=== PATIENT | male | born 1950 | race African-American/Black ===

== ENCOUNTER 2018-11-09 18:13 | Inpatient (IN) | payer BC, MEDICARE ==
[~2018-11-09] VITALS: Ht 177.8 cm; Wt 90.3 kg
[2018-11-09] MEDS ORDERED: SODIUM CHLORIDE 0.9% 1,000 ML IV ONE (19:29)
[2018-11-09] MEDS ORDERED: SODIUM CHLORIDE 0.9% 1000ML BAG (SEPSIS BOLUS) IV ONE (20:15)
[2018-11-09] MEDS ORDERED: LEVOFLOXACIN 750MG PREMIX 150 ML IV ONE (20:15)
[2018-11-09 20:20] LABS: CHLORIDE 99 mEq/L (98-107)
[2018-11-09 20:22] LABS: BASOPHILS % 0.5 % (0.0-2.0); EOSINOPHILS % 0.7 % (0.0-5.0); HEMATOCRIT. 33.3 % (42.0-52.0); HEMOGLOBIN. 11.3 g/dL (14.0-18.0); LYMPHOCYTES % 11.2 % (20.0-50.0); MEAN CORPUSCULAR HEMOGLOBIN 30.2 pg (28.0-32.0); MEAN CORPUSCULAR VOLUME 88.7 fL (80.0-94.0); MONOCYTES % 13.4 % (2.0-8.0); NEUTROPHILS % 74.2 % (40.0-76.0); PLATELET 280 x1000/uL (130-400); RED BLOOD CELL COUNT 3.75 mill/uL (4.7-6.1); RED CELL DISTRIBUTION WIDTH 14.2 % (11.6-14.6)
[2018-11-09 20:25] LABS: PARTIAL THROMBOPLASTIN TIME 26.8 sec (23.4-31.0); PROTHROMBIN TIME 10.7 sec (9.6-11.0)
[2018-11-09 22:56] LABS: CLARITY URINE TURBID (CLEAR); COLOR URINE YELLOW (YELLOW); KETONES URINE TRACE (NEGATIVE); LEUKOCYTE ESTERASE URINE 3+ (NEGATIVE); NITRITE URINE NEGATIVE (NEGATIVE); OCCULT BLOOD URINE 1+ (NEGATIVE); PROTEIN URINE 2+ (NEGATIVE); SPECIFIC GRAVITY URINE 1.011 (1.005-1.030); UROBILINOGEN URINE 0.2 E.U./dL (0.2-1.0)
[2018-11-09] MEDS ORDERED: DOCUSATE SODIUM 100MG CAPSULE PO PRN (23:15)
[2018-11-09] MEDS ORDERED: HYDROCODONE/ACETAMINOPHEN 5/325MG TABLET PO PRN (23:15)
[2018-11-09] MEDS ORDERED: IPRATROPIUM/ALBUTEROL 0.5-3(2.5)MG/3ML NEB INH PRN (23:15)
[2018-11-09] MEDS ORDERED: ONDANSETRON HCL 4MG/2ML INJ IV PRN (23:15)
[2018-11-09] MEDS ORDERED: CLONIDINE 0.1MG TABLET PO PRN (23:15)
[2018-11-09] MEDS ORDERED: ACETAMINOPHEN 325MG TABLET PO PRN (23:15)
[2018-11-09 23:30] VITALS: BP 165/89
[2018-11-10] MEDS ORDERED: METF-416 PO (00:21)
[2018-11-10] MEDS ORDERED: PROP40TA7 PO (00:21)
[2018-11-10] MEDS ORDERED: ATOR-2 PO (00:22)
[2018-11-10] MEDS ORDERED: LISI40TA4 PO (00:22)
[2018-11-10] MEDS ORDERED: MIRA50TA PO (00:27)
[2018-11-10] MEDS ORDERED: ALOG25TA2 PO (00:27)
[2018-11-10] MEDS ORDERED: HYDR12.54 PO (00:27)
[2018-11-10] MEDS ORDERED: INSU100I28 SQ (00:27)
[2018-11-10] MEDS ORDERED: DEXTROSE 50% WATER 50ML SYRINGE IV PRN (00:30)
[2018-11-10] MEDS: NIFEDIPINE XL 30MG TAB PO SCH (00:49)
[2018-11-10 04:00] VITALS: BP 116/68
[2018-11-10 06:54] LABS: BASOPHILS % 0.3 % (0.0-2.0); EOSINOPHILS % 1.7 % (0.0-5.0); HEMATOCRIT. 28.8 % (42.0-52.0); HEMOGLOBIN. 9.7 g/dL (14.0-18.0); LYMPHOCYTES % 14.7 % (20.0-50.0); MEAN CORPUSCULAR HEMOGLOBIN 30.2 pg (28.0-32.0); MEAN CORPUSCULAR VOLUME 89.5 fL (80.0-94.0); MEAN PLATELET VOLUME 9.5 fl (7.4-10.4); MONOCYTES % 14.4 % (2.0-8.0); NEUTROPHILS % 68.9 % (40.0-76.0); PLATELET 260 x1000/uL (130-400); RED BLOOD CELL COUNT 3.21 mill/uL (4.7-6.1); RED CELL DISTRIBUTION WIDTH 14.5 % (11.6-14.6)
[2018-11-10 07:11] LABS: CREATINE KINASE MB FRACTION 4.6 ng/mL (0.5-3.6)
[2018-11-10] MEDS: BLOOD SUGAR DIAGNOSTIC STRIP TEST SCH ×4 (07:20→21:22)
[2018-11-10 07:48] LABS: *BENZODIAZEPINES SCREEN URINE NEGATIVE (NEGATIVE); *COCAINE SCREEN URINE NEGATIVE (NEGATIVE); METHADONE URINE SCREEN NEGATIVE (NEGATIVE)
[2018-11-10 07:49] LABS: *AMPHETAMINES SCREEN URINE NEGATIVE (NEGATIVE); *BARBITURATES SCREEN URINE NEGATIVE (NEGATIVE); CANNABINOID URINE SCREEN NEGATIVE (NEGATIVE); OPIATES URINE SCREEN NEGATIVE (NEGATIVE); PHENCYCLIDINE URINE SCREEN NEGATIVE (NEGATIVE)
[2018-11-10 08:00] VITALS: BP 112/64
[2018-11-10] MEDS ORDERED: PNEUMOCOCCAL 23-VAL P-SAC VAC 0.5 ML IM ONE (08:00)
[2018-11-10 08:39] VITALS: BP 112/64
[2018-11-10] MEDS: INSULIN LISPRO 100 UNITS/ML SUBCUT SCH ×4 (10:01→21:26)
[2018-11-10 12:00] VITALS: BP 94/54
[2018-11-10 15:26] LABS: CREATINE KINASE MB FRACTION 3.9 ng/mL (0.5-3.6); T4 FREE 1.08 ng/dL (0.76-1.46)
[2018-11-10] MEDS: SODIUM CHLORIDE 0.45% 1,000 ML IV SCH (15:29)
[2018-11-10] MEDS: CEFTRIAXONE 1 G PREMIX 50 ML IV SCH (15:30)
[2018-11-10] MEDS: AZITHROMYCIN 500 MG TABLET PO SCH (15:30)
[2018-11-10 16:43] VITALS: BP 120/66
[2018-11-10 20:00] VITALS: BP 127/67
[2018-11-10] MEDS: ATORVASTATIN CALCIUM 40MG TABLET PO SCH (21:09)
[2018-11-11] VITALS: BP 130/68
[2018-11-11 04:00] VITALS: BP 130/68
[2018-11-11 04:16] LABS: HIV SCREEN 4G Non Reactive (Non Reactive)
[2018-11-11 06:21] LABS: BASOPHILS % 0.3 % (0.0-2.0); EOSINOPHILS % 3.5 % (0.0-5.0); HEMATOCRIT. 27.1 % (42.0-52.0); HEMOGLOBIN. 9.4 g/dL (14.0-18.0); LYMPHOCYTES % 14.8 % (20.0-50.0); MEAN CORPUSCULAR HEMOGLOBIN 30.9 pg (28.0-32.0); MEAN CORPUSCULAR VOLUME 88.9 fL (80.0-94.0); MEAN PLATELET VOLUME 9.2 fl (7.4-10.4); MONOCYTES % 12.1 % (2.0-8.0); NEUTROPHILS % 69.3 % (40.0-76.0); PLATELET 235 x1000/uL (130-400); RED BLOOD CELL COUNT 3.05 mill/uL (4.7-6.1)
[2018-11-11 06:26] LABS: PHOSPHORUS 5.4 mg/dL (2.5-4.9)
[2018-11-11] MEDS: BLOOD SUGAR DIAGNOSTIC STRIP TEST SCH ×4 (06:30→21:36)
[2018-11-11] MEDS: SODIUM CHLORIDE 0.45% 1,000 ML IV SCH ×2 (07:32→13:40)
[2018-11-11] MEDS: INSULIN LISPRO 100 UNITS/ML SUBCUT SCH ×4 (07:50→21:42)
[2018-11-11 08:00] VITALS: BP 138/76
[2018-11-11] MEDS: AZITHROMYCIN 500 MG TABLET PO SCH (10:07)
[2018-11-11] MEDS: NIFEDIPINE XL 30MG TAB PO SCH (10:07)
[2018-11-11 12:00] VITALS: BP 113/83
[2018-11-11 16:00] VITALS: BP 110/58
[2018-11-11] MEDS: CEFTRIAXONE 1 G PREMIX 50 ML IV SCH (16:34)
[2018-11-11 20:00] VITALS: BP 121/66
[2018-11-11] MEDS: ATORVASTATIN CALCIUM 40MG TABLET PO SCH (21:31)
[2018-11-11] MEDS: INSULIN GLARGINE UD 100 UNITS/ML SYR SUBCUT SCH (21:41)
[2018-11-12] VITALS (17 sets, daily range): BP systolic 114–140; BP diastolic 61–80
[2018-11-12] MEDS: SODIUM CHLORIDE 0.45% 1,000 ML IV SCH ×2 (01:57→18:47)
[2018-11-12] MEDS: BLOOD SUGAR DIAGNOSTIC STRIP TEST SCH ×4 (06:34→20:55)
[2018-11-12 06:55] LABS: BASOPHILS % 0.3 % (0.0-2.0); EOSINOPHILS % 4.4 % (0.0-5.0); HEMATOCRIT. 29.2 % (42.0-52.0); HEMOGLOBIN. 10.1 g/dL (14.0-18.0); LYMPHOCYTES % 15.8 % (20.0-50.0); MEAN CORPUSCULAR HEMOGLOBIN 30.4 pg (28.0-32.0); MEAN CORPUSCULAR VOLUME 87.4 fL (80.0-94.0); MEAN PLATELET VOLUME 9.4 fl (7.4-10.4); MONOCYTES % 11.3 % (2.0-8.0); NEUTROPHILS % 68.2 % (40.0-76.0); PLATELET 265 x1000/uL (130-400); RED BLOOD CELL COUNT 3.34 mill/uL (4.7-6.1); RED CELL DISTRIBUTION WIDTH 14.5 % (11.6-14.6)
[2018-11-12] MEDS: INSULIN LISPRO 100 UNITS/ML SUBCUT SCH ×4 (07:44→21:26)
[2018-11-12 08:05] LABS: PHOSPHORUS 5.7 mg/dL (2.5-4.9)
[2018-11-12] MEDS: NIFEDIPINE XL 30MG TAB PO SCH (09:24)
[2018-11-12] MEDS: AZITHROMYCIN 500 MG TABLET PO SCH (09:24)
[2018-11-12] MEDS: INSULIN GLARGINE UD 100 UNITS/ML SYR SUBCUT SCH ×2 (10:00→21:27)
[2018-11-12 10:08] LABS: PARTIAL THROMBOPLASTIN TIME 28.3 sec (23.4-31.0); PROTHROMBIN TIME 10.2 sec (9.6-11.0)
[2018-11-12 12:25] LABS: HEPATITIS B SURFACE ANTIGEN NEGATIVE
[2018-11-12] MEDS ORDERED: FENTANYL CITRATE/PF 50MCG/ML 2ML VIAL ONE (13:25)
[2018-11-12] MEDS ORDERED: FENTANYL CITRATE/PF 50MCG/ML 2ML VIAL IV ONE (13:45)
[2018-11-12] MEDS: CEFTRIAXONE 1 G PREMIX 50 ML IV SCH (16:43)
[2018-11-12] MEDS: ATORVASTATIN CALCIUM 40MG TABLET PO SCH (20:55)
[2018-11-13] VITALS: BP 144/80
[2018-11-13 04:00] VITALS: BP 142/77
[2018-11-13] MEDS: BLOOD SUGAR DIAGNOSTIC STRIP TEST SCH ×5 (06:24→20:32)
[2018-11-13 07:14] LABS: BASOPHILS % 0.3 % (0.0-2.0); EOSINOPHILS % 3.7 % (0.0-5.0); HEMATOCRIT. 28.4 % (42.0-52.0); HEMOGLOBIN. 9.8 g/dL (14.0-18.0); LYMPHOCYTES % 12.6 % (20.0-50.0); MEAN CORPUSCULAR HEMOGLOBIN 29.9 pg (28.0-32.0); MEAN CORPUSCULAR VOLUME 86.9 fL (80.0-94.0); MEAN PLATELET VOLUME 9.2 fl (7.4-10.4); MONOCYTES % 9.8 % (2.0-8.0); NEUTROPHILS % 73.6 % (40.0-76.0); PLATELET 240 x1000/uL (130-400); RED BLOOD CELL COUNT 3.27 mill/uL (4.7-6.1); RED CELL DISTRIBUTION WIDTH 14.1 % (11.6-14.6)
[2018-11-13 07:36] LABS: PHOSPHORUS 4.6 mg/dL (2.5-4.9)
[2018-11-13 08:00] VITALS: BP 140/74
[2018-11-13] MEDS: AZITHROMYCIN 500 MG TABLET PO SCH (08:39)
[2018-11-13] MEDS: NIFEDIPINE XL 30MG TAB PO SCH (08:39)
[2018-11-13] MEDS: INSULIN LISPRO 100 UNITS/ML SUBCUT SCH ×5 (08:42→20:32)
[2018-11-13] MEDS: INSULIN GLARGINE UD 100 UNITS/ML SYR SUBCUT SCH ×2 (11:22→21:26)
[2018-11-13 12:00] VITALS: BP 124/70
[2018-11-13] MEDS: CEFTRIAXONE 1 G PREMIX 50 ML IV SCH (15:00)
[2018-11-13 20:00] VITALS: BP 146/74
[2018-11-13] MEDS: ATORVASTATIN CALCIUM 40MG TABLET PO SCH (21:26)
[2018-11-13] MEDS ORDERED: HEPARIN 5000 UNITS/ML VIAL IV SCH (22:30)
[2018-11-13] MEDS ORDERED: HEPARIN SODIUM 1,000 UNIT/1ML VIAL IV SCH (22:30)
[2018-11-14] VITALS: BP 155/67
[2018-11-14 04:00] VITALS: BP 157/80
[2018-11-14] MEDS: BLOOD SUGAR DIAGNOSTIC STRIP TEST SCH ×4 (06:48→21:30)
[2018-11-14 06:51] LABS: BASOPHILS % 0.5 % (0.0-2.0); EOSINOPHILS % 4.1 % (0.0-5.0); HEMATOCRIT. 28.9 % (42.0-52.0); HEMOGLOBIN. 9.9 g/dL (14.0-18.0); LYMPHOCYTES % 13.4 % (20.0-50.0); MEAN CORPUSCULAR HEMOGLOBIN 30.2 pg (28.0-32.0); MEAN CORPUSCULAR VOLUME 88.7 fL (80.0-94.0); MEAN PLATELET VOLUME 9.7 fl (7.4-10.4); PLATELET 213 x1000/uL (130-400); RED BLOOD CELL COUNT 3.26 mill/uL (4.7-6.1); RED CELL DISTRIBUTION WIDTH 13.7 % (11.6-14.6)
[2018-11-14 08:00] VITALS: BP 146/87
[2018-11-14] MEDS: INSULIN LISPRO 100 UNITS/ML SUBCUT SCH ×4 (08:10→23:35)
[2018-11-14] MEDS: AZITHROMYCIN 500 MG TABLET PO SCH (09:03)
[2018-11-14] MEDS: NIFEDIPINE XL 30MG TAB PO SCH (09:03)
[2018-11-14] MEDS: INSULIN GLARGINE UD 100 UNITS/ML SYR SUBCUT SCH ×2 (09:04→23:37)
[2018-11-14 12:00] VITALS: BP 138/79
[2018-11-14 12:44] LABS: HEPATITIS B SURFACE ANTIGEN NEGATIVE
[2018-11-14 13:13] LABS: HEPATITIS A AB IGM NEGATIVE (NEGATIVE)
[2018-11-14] MEDS: CEFTRIAXONE 1 G PREMIX 50 ML IV SCH (14:01)
[2018-11-14 16:00] VITALS: BP 127/69
[2018-11-14 20:00] VITALS: BP 157/82
[2018-11-14] MEDS: ATORVASTATIN CALCIUM 40MG TABLET PO SCH (23:11)
[2018-11-15] VITALS: BP 145/86
[2018-11-15 04:00] VITALS: BP 140/80
[2018-11-15 06:09] LABS: BASOPHILS % 0.4 % (0.0-2.0); EOSINOPHILS % 4.4 % (0.0-5.0); HEMATOCRIT. 29.7 % (42.0-52.0); HEMOGLOBIN. 10.1 g/dL (14.0-18.0); LYMPHOCYTES % 16.2 % (20.0-50.0); MEAN CORPUSCULAR HEMOGLOBIN 30.4 pg (28.0-32.0); MEAN CORPUSCULAR VOLUME 88.9 fL (80.0-94.0); MEAN PLATELET VOLUME 9.6 fl (7.4-10.4); MONOCYTES % 11.7 % (2.0-8.0); NEUTROPHILS % 67.3 % (40.0-76.0); PLATELET 239 x1000/uL (130-400); RED BLOOD CELL COUNT 3.34 mill/uL (4.7-6.1); RED CELL DISTRIBUTION WIDTH 13.8 % (11.6-14.6)
[2018-11-15] MEDS: BLOOD SUGAR DIAGNOSTIC STRIP TEST SCH ×4 (07:40→20:31)
[2018-11-15 08:00] VITALS: BP 158/87
[2018-11-15] MEDS: AZITHROMYCIN 500 MG TABLET PO SCH (08:33)
[2018-11-15] MEDS: NIFEDIPINE XL 30MG TAB PO SCH (08:34)
[2018-11-15] MEDS: INSULIN LISPRO 100 UNITS/ML SUBCUT SCH ×4 (08:36→20:48)
[2018-11-15] MEDS: INSULIN GLARGINE UD 100 UNITS/ML SYR SUBCUT SCH ×2 (11:17→21:27)
[2018-11-15 12:00] VITALS: BP 128/79
[2018-11-15] MEDS: CEFTRIAXONE 1 G PREMIX 50 ML IV SCH (15:39)
[2018-11-15 16:00] VITALS: BP 128/69
[2018-11-15 20:00] VITALS: BP 153/85
[2018-11-15] MEDS: ATORVASTATIN CALCIUM 40MG TABLET PO SCH (21:25)
[2018-11-16] VITALS: BP 141/77
[2018-11-16 04:00] VITALS: BP 134/78
[2018-11-16] MEDS: BLOOD SUGAR DIAGNOSTIC STRIP TEST SCH ×4 (05:50→21:12)
[2018-11-16 06:40] LABS: BASOPHILS % 0.3 % (0.0-2.0); EOSINOPHILS % 4.3 % (0.0-5.0); HEMATOCRIT. 30.2 % (42.0-52.0); HEMOGLOBIN. 10.1 g/dL (14.0-18.0); LYMPHOCYTES % 14.5 % (20.0-50.0); MEAN CORPUSCULAR HEMOGLOBIN 29.8 pg (28.0-32.0); MEAN CORPUSCULAR VOLUME 88.9 fL (80.0-94.0); MEAN PLATELET VOLUME 9.6 fl (7.4-10.4); MONOCYTES % 10.8 % (2.0-8.0); NEUTROPHILS % 70.1 % (40.0-76.0); PLATELET 231 x1000/uL (130-400)
[2018-11-16 08:00] VITALS: BP 137/72
[2018-11-16] MEDS: NIFEDIPINE XL 30MG TAB PO SCH (08:34)
[2018-11-16] MEDS: AZITHROMYCIN 500 MG TABLET PO SCH (08:34)
[2018-11-16] MEDS: INSULIN LISPRO 100 UNITS/ML SUBCUT SCH ×4 (08:37→21:00)
[2018-11-16] MEDS: INSULIN GLARGINE UD 100 UNITS/ML SYR SUBCUT SCH ×2 (10:27→21:18)
[2018-11-16 12:00] VITALS: BP 136/75
[2018-11-16] MEDS: CEFTRIAXONE 1 G PREMIX 50 ML IV SCH (14:45)
[2018-11-16 16:00] VITALS: BP 122/72
[2018-11-16 20:00] VITALS: BP 133/73
[2018-11-16] MEDS: ATORVASTATIN CALCIUM 40MG TABLET PO SCH (21:16)
[2018-11-17] VITALS: BP 144/78
[2018-11-17 04:00] VITALS: BP 138/85
[2018-11-17 06:09] LABS: BASOPHILS % 0.6 % (0.0-2.0); EOSINOPHILS % 4.8 % (0.0-5.0); HEMATOCRIT. 28.3 % (42.0-52.0); HEMOGLOBIN. 9.3 g/dL (14.0-18.0); MEAN CORPUSCULAR HEMOGLOBIN 29.8 pg (28.0-32.0); MEAN CORPUSCULAR VOLUME 90.6 fL (80.0-94.0); MEAN PLATELET VOLUME 9.6 fl (7.4-10.4); MONOCYTES % 11.8 % (2.0-8.0); NEUTROPHILS % 64.8 % (40.0-76.0); PLATELET 213 x1000/uL (130-400); RED BLOOD CELL COUNT 3.13 mill/uL (4.7-6.1); RED CELL DISTRIBUTION WIDTH 13.8 % (11.6-14.6)
[2018-11-17 08:00] VITALS: BP 145/85
[2018-11-17] MEDS: BLOOD SUGAR DIAGNOSTIC STRIP TEST SCH ×4 (08:06→21:00)
[2018-11-17] MEDS: INSULIN LISPRO 100 UNITS/ML SUBCUT SCH ×4 (08:07→21:11)
[2018-11-17] MEDS: NIFEDIPINE XL 30MG TAB PO SCH (09:04)
[2018-11-17] MEDS: AZITHROMYCIN 500 MG TABLET PO SCH (09:04)
[2018-11-17] MEDS: INSULIN GLARGINE UD 100 UNITS/ML SYR SUBCUT SCH ×2 (09:05→21:11)
[2018-11-17 12:00] VITALS: BP 133/77
[2018-11-17] MEDS: CEFTRIAXONE 1 G PREMIX 50 ML IV SCH (15:00)
[2018-11-17 16:00] VITALS: BP 121/62
[2018-11-17 20:00] VITALS: BP 132/77
[2018-11-17] MEDS: ATORVASTATIN CALCIUM 40MG TABLET PO SCH (21:10)
[2018-11-18] VITALS: BP 134/76
[2018-11-18 04:00] VITALS: BP 137/76
[2018-11-18] MEDS: BLOOD SUGAR DIAGNOSTIC STRIP TEST SCH ×4 (06:44→21:00)
[2018-11-18 07:02] LABS: BASOPHILS % 0.5 % (0.0-2.0); EOSINOPHILS % 4.9 % (0.0-5.0); HEMATOCRIT. 29.3 % (42.0-52.0); HEMOGLOBIN. 9.8 g/dL (14.0-18.0); LYMPHOCYTES % 13.9 % (20.0-50.0); MEAN CORPUSCULAR HEMOGLOBIN 30.1 pg (28.0-32.0); MEAN CORPUSCULAR VOLUME 90.2 fL (80.0-94.0); MEAN PLATELET VOLUME 9.5 fl (7.4-10.4); MONOCYTES % 11.5 % (2.0-8.0); NEUTROPHILS % 69.2 % (40.0-76.0); PLATELET 210 x1000/uL (130-400); RED BLOOD CELL COUNT 3.25 mill/uL (4.7-6.1); RED CELL DISTRIBUTION WIDTH 13.9 % (11.6-14.6)
[2018-11-18 08:00] VITALS: BP 131/74
[2018-11-18] MEDS: INSULIN LISPRO 100 UNITS/ML SUBCUT SCH ×4 (08:10→21:50)
[2018-11-18] MEDS: NIFEDIPINE XL 30MG TAB PO SCH (09:28)
[2018-11-18] MEDS: INSULIN GLARGINE UD 100 UNITS/ML SYR SUBCUT SCH ×2 (09:29→21:50)
[2018-11-18 12:00] VITALS: BP 128/79
[2018-11-18 16:00] VITALS: BP 146/65
[2018-11-18 20:00] VITALS: BP 130/77
[2018-11-18] MEDS: ATORVASTATIN CALCIUM 40MG TABLET PO SCH (21:49)
[2018-11-19] VITALS: BP 137/71
[2018-11-19 04:00] VITALS: BP 133/86
[2018-11-19 07:41] LABS: BASOPHILS % 0.6 % (0.0-2.0); EOSINOPHILS % 4.9 % (0.0-5.0); HEMATOCRIT. 24.2 % (42.0-52.0); HEMOGLOBIN. 8.1 g/dL (14.0-18.0); LYMPHOCYTES % 14.5 % (20.0-50.0); MEAN CORPUSCULAR HEMOGLOBIN 30.3 pg (28.0-32.0); MEAN CORPUSCULAR VOLUME 89.9 fL (80.0-94.0); MEAN PLATELET VOLUME 9.4 fl (7.4-10.4); MONOCYTES % 10.8 % (2.0-8.0); NEUTROPHILS % 69.2 % (40.0-76.0); PLATELET 204 x1000/uL (130-400); RED BLOOD CELL COUNT 2.69 mill/uL (4.7-6.1); RED CELL DISTRIBUTION WIDTH 13.8 % (11.6-14.6)
[2018-11-19] MEDS: BLOOD SUGAR DIAGNOSTIC STRIP TEST SCH ×3 (07:44→17:24)
[2018-11-19] MEDS: INSULIN LISPRO 100 UNITS/ML SUBCUT SCH ×3 (07:44→18:10)
[2018-11-19 08:00] VITALS: BP 154/83
[2018-11-19] MEDS: NIFEDIPINE XL 30MG TAB PO SCH (09:00)
[2018-11-19 10:09] LABS: HEMATOCRIT 27.8 % (42.0-52.0); HEMOGLOBIN 9.2 g/dL (14.0-18.0)
[2018-11-19] MEDS: INSULIN GLARGINE UD 100 UNITS/ML SYR SUBCUT SCH (10:36)
[2018-11-19 12:00] VITALS: BP 158/88
[2018-11-19] MEDS ORDERED: MIRA50TA PO (13:14)
[2018-11-19] MEDS ORDERED: ALOG12.5 MT (13:14)
[2018-11-19] MEDS ORDERED: INSU100I28 SQ (13:17)
[2018-11-19 16:00] VITALS: BP 142/90
[2018-11-19 18:24] VITALS: BP 142/90
== END 2018-11-19 20:30 | disposition home or self-care (01) | DRG 673 ==
LOC: ER 19:00 → 6WST 22:04 → EDBEDREQTM 22:17 → EDBEDREQ 22:17 → ENRESERV 22:20 → 7WST 11-13 13:48
PROVIDERS: ADMIT Internal Medicine; ATTEND Internal Medicine
PROC: 0JH63XZ Insertion of Tunneled Vascular Access Device into Chest Subcutaneous Tissue and Fascia, Percutaneous Approach (ICD-10-PCS; principal; 2018-11-12)
PROC: 02HV33Z Insertion of Infusion Device into Superior Vena Cava, Percutaneous Approach (ICD-10-PCS; 2018-11-12)
PROC: B5181ZA Fluoroscopy of Superior Vena Cava using Low Osmolar Contrast, Guidance (ICD-10-PCS; 2018-11-12)
PROC: B548ZZA Ultrasonography of Superior Vena Cava, Guidance (ICD-10-PCS; 2018-11-12)
PROC: 5A1D70Z Performance of Urinary Filtration, Intermittent, Less than 6 Hours Per Day (ICD-10-PCS; 2018-11-12)
PROC: 5A1D70Z Performance of Urinary Filtration, Intermittent, Less than 6 Hours Per Day (ICD-10-PCS; 2018-11-13)
PROC: 5A1D70Z Performance of Urinary Filtration, Intermittent, Less than 6 Hours Per Day (ICD-10-PCS; 2018-11-15)
PROC: 5A1D70Z Performance of Urinary Filtration, Intermittent, Less than 6 Hours Per Day (ICD-10-PCS; 2018-11-17)
PROC: 5A1D70Z Performance of Urinary Filtration, Intermittent, Less than 6 Hours Per Day (ICD-10-PCS; 2018-11-18)
DX: N17.9 Acute kidney failure, unspecified (principal); J18.9 Pneumonia, unspecified organism; E46 Unspecified protein-calorie malnutrition; N39.0 Urinary tract infection, site not specified; I13.10 Hypertensive heart and chronic kidney disease without heart failure, with stage 1 through stage 4 chronic kidney disease, or unspecified chronic kidney disease; E11.22 Type 2 diabetes mellitus with diabetic chronic kidney disease; N18.9 Chronic kidney disease, unspecified; I27.20 Pulmonary hypertension, unspecified; G25.0 Essential tremor; R80.9 Proteinuria, unspecified; R31.9 Hematuria, unspecified; I08.3 Combined rheumatic disorders of mitral, aortic and tricuspid valves; D72.821 Monocytosis (symptomatic); E87.6 Hypokalemia; D64.9 Anemia, unspecified; R62.7 Adult failure to thrive; Z68.26 Body mass index [BMI] 26.0-26.9, adult; Z85.46 Personal history of malignant neoplasm of prostate; Z90.79 Acquired absence of other genital organ(s); Z79.4 Long term (current) use of insulin; Z79.84 Long term (current) use of oral hypoglycemic drugs
CPT/HCPCS: 36415; 36558; 71045; 76770; 76937; 77001; 80048; 80061; 80305; 82550; 82553; 82570; 82575; 82728; 82962; 83036; 83540; 83550; 83605; 83735; 83880; 84100; 84145; 84153; 84156; 84439; 84443; 84481; 84484; 85014; 85018; 86705; 86706; 86709; 86803; 87077; 87186; 87340; 87389; 90732; 93005; 93306; 93970; 96365; 97116; 97162; 97166; 97530; 97535; 99152; 99153; 99291; C1750; C1769; C1893; J0696; J1642; J1644; J1815; J1956; J3010; J7030; J7040; J7050; A4315; G0103; G0500

== ENCOUNTER 2020-08-26 19:15 | Emergency (ER) | payer MEDICARE ==
[~2020-08-26] VITALS: Ht 180.3 cm; Wt 90.0 kg
[~2020-08-26 19:15] MED LIST: ALOG12.5 MT; ATOR-2 PO; INSU100I28 SQ; MIRA50TA PO; PROP40TA7 PO
[2020-08-26 20:45] VITALS: BP 183/104
== END 2020-08-26 20:53 | disposition home or self-care (01) ==
LOC: ER 19:15
DX: R53.1 Weakness (principal); V49.49XA Driver injured in collision with other motor vehicles in traffic accident, initial encounter; Y93.89 Activity, other specified; Y92.89 Other specified places as the place of occurrence of the external cause; Y99.8 Other external cause status; E11.9 Type 2 diabetes mellitus without complications; I10 Essential (primary) hypertension; Z79.899 Other long term (current) drug therapy
CPT/HCPCS: 82962; 93005; 99284

== ENCOUNTER 2022-05-29 23:17 | Inpatient (IN) | payer MEDICARE, MEDICAID, OTHER ==
[~2022-05-29] VITALS: Ht 175.3 cm; Wt 82.6 kg
[2022-05-30] MEDS ORDERED: FOLIC ACID 1 MG, THIAMINE HCL 100 MG, MVI, ADULT NO.1 10 ML in DEXTROSE 5% WATER 1,000 ML IV ONE ×4 (01:45)
[2022-05-30] MEDS ORDERED: MAGNESIUM 2 G PREMIX 50 ML IV ONE (01:45)
[2022-05-30 02:06] LABS: BASOPHILS % 0.6 % (0.0-2.0); EOSINOPHILS % 2.6 % (0.0-5.0); LYMPHOCYTES % 14.1 % (20.0-50.0); MEAN CORPUSCULAR HEMOGLOBIN 29.9 pg (28.0-32.0); MEAN CORPUSCULAR VOLUME 92.3 fL (80.0-94.0); MEAN PLATELET VOLUME 9.7 fl (7.4-10.4); MONOCYTES % 10.7 % (2.0-8.0); PLATELET 246 x1000/uL (130-400); RED BLOOD CELL COUNT 3.36 mill/uL (4.7-6.1); RED CELL DISTRIBUTION WIDTH 14.5 % (11.6-14.6)
[2022-05-30 02:19] LABS: CHLORIDE 111 mEq/L (98-107)
[2022-05-30 02:29] LABS: ETHANOL BLOOD < 10 mg/dL
[2022-05-30] MEDS ORDERED: SODIUM CHLORIDE 0.9% 1,000 ML IV ONE ×2 (05:00→10:00)
[2022-05-30] MEDS ORDERED: ONDANSETRON HCL 4MG/2ML INJ IV PRN (12:45)
[2022-05-30] MEDS ORDERED: TRAMADOL 50MG TABLET PO PRN (12:45)
[2022-05-30] MEDS ORDERED: MAGNESIUM/ALUMINUM HYDROXIDE/SIMETHICONE 30ML UDC PO PRN (12:45)
[2022-05-30] MEDS ORDERED: GUAIFENESIN 200MG/10ML SUGAR FREE UDC PO PRN (12:45)
[2022-05-30] MEDS ORDERED: NALOXONE HCL 0.4MG/ML VIAL IV PRN (13:00)
[2022-05-30] MEDS: SODIUM CHLORIDE 0.9% 1,000 ML IV SCH (13:06)
[2022-05-30 22:00] VITALS: BP 130/69
[2022-05-31] VITALS: BP 137/66
[2022-05-31] MEDS: SODIUM CHLORIDE 0.9% 1,000 ML IV SCH ×2 (02:39→15:07)
[2022-05-31] MEDS ORDERED: METF-414 PO (03:27)
[2022-05-31 04:00] VITALS: BP 134/75
[2022-05-31 07:38] LABS: BASOPHILS % 0.6 % (0.0-2.0); EOSINOPHILS % 6.2 % (0.0-5.0); LYMPHOCYTES % 18.8 % (20.0-50.0); MEAN CORPUSCULAR HEMOGLOBIN 29.8 pg (28.0-32.0); MEAN CORPUSCULAR VOLUME 92.1 fL (80.0-94.0); MEAN PLATELET VOLUME 10.2 fl (7.4-10.4); MONOCYTES % 13.7 % (2.0-8.0); NEUTROPHILS % 60.7 % (40.0-76.0); PLATELET 247 x1000/uL (130-400); RED BLOOD CELL COUNT 4.27 mill/uL (4.7-6.1); RED CELL DISTRIBUTION WIDTH 14.7 % (11.6-14.6)
[2022-05-31 08:00] VITALS: BP 134/60
[2022-05-31 08:03] LABS: HEMATOCRIT. 39.3 % (42.0-52.0); HEMOGLOBIN. 12.7 g/dL (14.0-18.0)
[2022-05-31] MEDS: THIAMINE HCL 100MG TABLET PO SCH (08:08)
[2022-05-31] MEDS: FOLIC ACID 1MG TABLET PO SCH (08:08)
[2022-05-31] MEDS: MULTIVITAMINS,THER W-MINERALS TABLET PO SCH (08:08)
[2022-05-31] MEDS: AMLODIPINE 10MG TABLET PO SCH (08:09)
[2022-05-31 08:17] LABS: CHLORIDE 113 mEq/L (98-107)
[2022-05-31 08:35] LABS: HDL CHOLESTEROL 59 mg/dL (40-59); LDL CHOLESTEROL 74 mg/dL (5-100)
[2022-05-31] MEDS: METFORMIN HCL 500MG TABLET PO SCH ×2 (10:37→17:20)
[2022-05-31 12:00] VITALS: BP 117/65
[2022-05-31 16:00] VITALS: BP 123/68
[2022-05-31 20:00] VITALS: BP 119/67
[2022-05-31] MEDS: ATORVASTATIN CALCIUM 40MG TABLET PO SCH (21:00)
[2022-05-31] MEDS: PROPRANOLOL HCL 10MG TABLET PO SCH (21:00)
[2022-05-31] MEDS: INSULIN GLARGINE 100 UNITS/ML SUBCUT SCH (22:08)
[2022-06-01] VITALS: BP 150/70
[2022-06-01 04:00] VITALS: BP 164/86
[2022-06-01] MEDS: SODIUM CHLORIDE 0.9% 1,000 ML IV SCH ×2 (05:00→22:04)
[2022-06-01 08:00] VITALS: BP 136/58
[2022-06-01] MEDS: METFORMIN HCL 500MG TABLET PO SCH ×2 (08:34→17:08)
[2022-06-01] MEDS: MULTIVITAMINS,THER W-MINERALS TABLET PO SCH (08:34)
[2022-06-01] MEDS: AMLODIPINE 10MG TABLET PO SCH (08:34)
[2022-06-01] MEDS: FOLIC ACID 1MG TABLET PO SCH (08:34)
[2022-06-01] MEDS: THIAMINE HCL 100MG TABLET PO SCH (08:34)
[2022-06-01] MEDS: PROPRANOLOL HCL 10MG TABLET PO SCH ×2 (08:35→20:48)
[2022-06-01 12:00] VITALS: BP 117/73
[2022-06-01 16:00] VITALS: BP 154/86
[2022-06-01 20:00] VITALS: BP 144/93
[2022-06-01] MEDS: ATORVASTATIN CALCIUM 40MG TABLET PO SCH (20:47)
[2022-06-01] MEDS: INSULIN GLARGINE 100 UNITS/ML SUBCUT SCH (21:48)
[2022-06-02] VITALS: BP 157/73
[2022-06-02 04:00] VITALS: BP 138/67
[2022-06-02 08:00] VITALS: BP 129/93
[2022-06-02] MEDS: METFORMIN HCL 500MG TABLET PO SCH ×2 (08:47→18:35)
[2022-06-02] MEDS: SODIUM CHLORIDE 0.9% 1,000 ML IV SCH ×2 (08:47→21:00)
[2022-06-02] MEDS: FOLIC ACID 1MG TABLET PO SCH (08:48)
[2022-06-02] MEDS: THIAMINE HCL 100MG TABLET PO SCH (08:50)
[2022-06-02] MEDS: MULTIVITAMINS,THER W-MINERALS TABLET PO SCH (08:50)
[2022-06-02] MEDS: PROPRANOLOL HCL 10MG TABLET PO SCH ×2 (09:00→21:37)
[2022-06-02 12:00] VITALS: BP 159/60
[2022-06-02] MEDS: AMLODIPINE 10MG TABLET PO SCH (14:45)
[2022-06-02 16:00] VITALS: BP 146/72
[2022-06-02 20:00] VITALS: BP 155/79
[2022-06-02] MEDS: ATORVASTATIN CALCIUM 40MG TABLET PO SCH (21:35)
[2022-06-02] MEDS: INSULIN GLARGINE 100 UNITS/ML SUBCUT SCH (21:36)
[2022-06-03] VITALS: BP 143/66
[2022-06-03 04:00] VITALS: BP 133/73
[2022-06-03 08:00] VITALS: BP 139/71
[2022-06-03] MEDS: THIAMINE HCL 100MG TABLET PO SCH (09:28)
[2022-06-03] MEDS: MULTIVITAMINS,THER W-MINERALS TABLET PO SCH (09:28)
[2022-06-03] MEDS: SODIUM CHLORIDE 0.9% 1,000 ML IV SCH ×2 (09:28→22:25)
[2022-06-03] MEDS: PROPRANOLOL HCL 10MG TABLET PO SCH ×2 (09:28→20:57)
[2022-06-03] MEDS: METFORMIN HCL 500MG TABLET PO SCH ×2 (09:28→17:44)
[2022-06-03] MEDS: FOLIC ACID 1MG TABLET PO SCH (09:28)
[2022-06-03] MEDS: AMLODIPINE 10MG TABLET PO SCH (09:32)
[2022-06-03 12:00] VITALS: BP 138/75
[2022-06-03 16:00] VITALS: BP 124/62
[2022-06-03 20:00] VITALS: BP 137/75
[2022-06-03] MEDS: ATORVASTATIN CALCIUM 40MG TABLET PO SCH (20:55)
[2022-06-03] MEDS: INSULIN GLARGINE 100 UNITS/ML SUBCUT SCH (22:17)
[2022-06-04] VITALS: BP 155/84
[2022-06-04 04:00] VITALS: BP 135/78
[2022-06-04 08:00] VITALS: BP 151/76
[2022-06-04] MEDS: AMLODIPINE 10MG TABLET PO SCH (09:14)
[2022-06-04] MEDS: THIAMINE HCL 100MG TABLET PO SCH (09:14)
[2022-06-04] MEDS: MULTIVITAMINS,THER W-MINERALS TABLET PO SCH (09:14)
[2022-06-04] MEDS: FOLIC ACID 1MG TABLET PO SCH (09:14)
[2022-06-04] MEDS: METFORMIN HCL 500MG TABLET PO SCH ×2 (09:14→17:30)
[2022-06-04] MEDS: PROPRANOLOL HCL 10MG TABLET PO SCH ×2 (09:15→21:39)
[2022-06-04 12:00] VITALS: BP 123/65
[2022-06-04] MEDS: SODIUM CHLORIDE 0.9% 1,000 ML IV SCH (13:22)
[2022-06-04 16:00] VITALS: BP 118/65
[2022-06-04 20:00] VITALS: BP 142/79
[2022-06-04] MEDS: ATORVASTATIN CALCIUM 40MG TABLET PO SCH (21:39)
[2022-06-04] MEDS: INSULIN GLARGINE 100 UNITS/ML SUBCUT SCH (22:05)
[2022-06-05] VITALS: BP 139/88
[2022-06-05] MEDS: SODIUM CHLORIDE 0.9% 1,000 ML IV SCH ×2 (02:26→17:00)
[2022-06-05 04:00] VITALS: BP 138/83
[2022-06-05 08:00] VITALS: BP 142/80
[2022-06-05] MEDS: AMLODIPINE 10MG TABLET PO SCH (09:08)
[2022-06-05] MEDS: THIAMINE HCL 100MG TABLET PO SCH (09:08)
[2022-06-05] MEDS: METFORMIN HCL 500MG TABLET PO SCH ×2 (09:08→17:23)
[2022-06-05] MEDS: FOLIC ACID 1MG TABLET PO SCH (09:08)
[2022-06-05] MEDS: PROPRANOLOL HCL 10MG TABLET PO SCH ×2 (09:09→21:59)
[2022-06-05] MEDS: MULTIVITAMINS,THER W-MINERALS TABLET PO SCH (09:09)
[2022-06-05 12:00] VITALS: BP 117/69
[2022-06-05 16:00] VITALS: BP 138/75
[2022-06-05 20:00] VITALS: BP 138/86
[2022-06-05] MEDS: ATORVASTATIN CALCIUM 40MG TABLET PO SCH (21:59)
[2022-06-05] MEDS: INSULIN GLARGINE 100 UNITS/ML SUBCUT SCH (22:09)
[2022-06-06] VITALS: BP 161/88
[2022-06-06 04:00] VITALS: BP 148/83
[2022-06-06] MEDS: SODIUM CHLORIDE 0.9% 1,000 ML IV SCH ×2 (05:00→18:01)
[2022-06-06 08:00] VITALS: BP 120/78
[2022-06-06] MEDS: METFORMIN HCL 500MG TABLET PO SCH ×2 (09:29→18:01)
[2022-06-06] MEDS: MULTIVITAMINS,THER W-MINERALS TABLET PO SCH (09:29)
[2022-06-06] MEDS: AMLODIPINE 10MG TABLET PO SCH (09:29)
[2022-06-06] MEDS: THIAMINE HCL 100MG TABLET PO SCH (09:30)
[2022-06-06] MEDS: PROPRANOLOL HCL 10MG TABLET PO SCH ×2 (09:30→21:25)
[2022-06-06] MEDS: FOLIC ACID 1MG TABLET PO SCH (09:30)
[2022-06-06 12:00] VITALS: BP 128/72
[2022-06-06 16:00] VITALS: BP 107/66
[2022-06-06 20:00] VITALS: BP 114/87
[2022-06-06] MEDS: ATORVASTATIN CALCIUM 40MG TABLET PO SCH (21:25)
[2022-06-06] MEDS: INSULIN GLARGINE 100 UNITS/ML SUBCUT SCH (21:28)
[2022-06-07] VITALS: BP 118/82
[2022-06-07 08:00] VITALS: BP 133/79
[2022-06-07] MEDS: FOLIC ACID 1MG TABLET PO SCH (09:03)
[2022-06-07] MEDS: AMLODIPINE 10MG TABLET PO SCH (09:04)
[2022-06-07] MEDS: THIAMINE HCL 100MG TABLET PO SCH (09:04)
[2022-06-07] MEDS: METFORMIN HCL 500MG TABLET PO SCH ×2 (09:04→16:57)
[2022-06-07] MEDS: PROPRANOLOL HCL 10MG TABLET PO SCH ×2 (09:04→22:47)
[2022-06-07] MEDS: MULTIVITAMINS,THER W-MINERALS TABLET PO SCH (09:04)
[2022-06-07] MEDS: SODIUM CHLORIDE 0.9% 1,000 ML IV SCH ×2 (09:05→21:00)
[2022-06-07 12:00] VITALS: BP 132/75
[2022-06-07 16:00] VITALS: BP 125/81
[2022-06-07 20:00] VITALS: BP 141/94
[2022-06-07] MEDS ORDERED: LOPERAMIDE HCL 2MG CAPSULE PO NR (22:30)
[2022-06-07] MEDS: ATORVASTATIN CALCIUM 40MG TABLET PO SCH (22:49)
[2022-06-07] MEDS: INSULIN GLARGINE 100 UNITS/ML SUBCUT SCH (22:52)
[2022-06-08] VITALS: BP 153/88
[2022-06-08] MEDS ORDERED: LOPERAMIDE HCL 2MG CAPSULE PO PRN
[2022-06-08 04:00] VITALS: BP 125/66
[2022-06-08 08:00] VITALS: BP 146/87
[2022-06-08] MEDS: METFORMIN HCL 500MG TABLET PO SCH ×2 (08:28→18:15)
[2022-06-08] MEDS: AMLODIPINE 10MG TABLET PO SCH (08:32)
[2022-06-08] MEDS: THIAMINE HCL 100MG TABLET PO SCH (08:32)
[2022-06-08] MEDS: FOLIC ACID 1MG TABLET PO SCH (08:32)
[2022-06-08] MEDS: PROPRANOLOL HCL 10MG TABLET PO SCH ×2 (08:32→22:13)
[2022-06-08] MEDS: MULTIVITAMINS,THER W-MINERALS TABLET PO SCH (08:32)
[2022-06-08] MEDS: SODIUM CHLORIDE 0.9% 1,000 ML IV SCH (09:52)
[2022-06-08 12:00] VITALS: BP 106/51
[2022-06-08 16:00] VITALS: BP 148/83
[2022-06-08 20:00] VITALS: BP 158/84
[2022-06-08] MEDS: ATORVASTATIN CALCIUM 40MG TABLET PO SCH (22:14)
[2022-06-08] MEDS: INSULIN GLARGINE 100 UNITS/ML SUBCUT SCH (22:15)
[2022-06-09] VITALS: BP 116/71
[2022-06-09] MEDS: SODIUM CHLORIDE 0.9% 1,000 ML IV SCH ×2 (01:22→13:00)
[2022-06-09 08:00] VITALS: BP 169/84
[2022-06-09] MEDS: FOLIC ACID 1MG TABLET PO SCH (08:43)
[2022-06-09] MEDS: PROPRANOLOL HCL 10MG TABLET PO SCH ×2 (08:43→22:12)
[2022-06-09] MEDS: THIAMINE HCL 100MG TABLET PO SCH (08:43)
[2022-06-09] MEDS: AMLODIPINE 10MG TABLET PO SCH (08:44)
[2022-06-09] MEDS: METFORMIN HCL 500MG TABLET PO SCH ×2 (08:44→19:17)
[2022-06-09] MEDS: MULTIVITAMINS,THER W-MINERALS TABLET PO SCH (08:44)
[2022-06-09 12:00] VITALS: BP 126/74
[2022-06-09] MEDS: CARBIDOPA/LEVODOPA 10/100MG TABLET PO SCH ×2 (14:00→22:09)
[2022-06-09 16:00] VITALS: BP 130/68
[2022-06-09 20:00] VITALS: BP 157/79
[2022-06-09] MEDS: INSULIN GLARGINE 100 UNITS/ML SUBCUT SCH (22:00)
[2022-06-09] MEDS: ATORVASTATIN CALCIUM 40MG TABLET PO SCH (22:11)
[2022-06-10] VITALS: BP 126/66
[2022-06-10] MEDS: SODIUM CHLORIDE 0.9% 1,000 ML IV SCH (02:20)
[2022-06-10 04:00] VITALS: BP 128/68
[2022-06-10] MEDS: CARBIDOPA/LEVODOPA 10/100MG TABLET PO SCH ×3 (06:50→21:25)
[2022-06-10 08:00] VITALS: BP 152/82
[2022-06-10] MEDS: THIAMINE HCL 100MG TABLET PO SCH (08:31)
[2022-06-10] MEDS: MULTIVITAMINS,THER W-MINERALS TABLET PO SCH (08:31)
[2022-06-10] MEDS: FOLIC ACID 1MG TABLET PO SCH (08:31)
[2022-06-10] MEDS: METFORMIN HCL 500MG TABLET PO SCH ×2 (08:31→17:50)
[2022-06-10] MEDS: PROPRANOLOL HCL 10MG TABLET PO SCH ×2 (08:33→21:25)
[2022-06-10] MEDS: AMLODIPINE 10MG TABLET PO SCH (08:33)
[2022-06-10 12:00] VITALS: BP 137/71
[2022-06-10 16:00] VITALS: BP 124/69
[2022-06-10 20:00] VITALS: BP 125/65
[2022-06-10] MEDS: ATORVASTATIN CALCIUM 40MG TABLET PO SCH (21:25)
[2022-06-10] MEDS: INSULIN GLARGINE 100 UNITS/ML SUBCUT SCH (21:27)
[2022-06-11] VITALS: BP 122/62
[2022-06-11 04:00] VITALS: BP 124/60
[2022-06-11] MEDS: CARBIDOPA/LEVODOPA 10/100MG TABLET PO SCH ×3 (06:00→21:48)
[2022-06-11 08:00] VITALS: BP 150/88
[2022-06-11] MEDS: MULTIVITAMINS,THER W-MINERALS TABLET PO SCH (08:54)
[2022-06-11] MEDS: METFORMIN HCL 500MG TABLET PO SCH ×2 (08:54→17:20)
[2022-06-11] MEDS: AMLODIPINE 10MG TABLET PO SCH (08:54)
[2022-06-11] MEDS: THIAMINE HCL 100MG TABLET PO SCH (08:55)
[2022-06-11] MEDS: FOLIC ACID 1MG TABLET PO SCH (08:55)
[2022-06-11] MEDS: PROPRANOLOL HCL 10MG TABLET PO SCH ×2 (08:55→21:47)
[2022-06-11 12:00] VITALS: BP 128/68
[2022-06-11 16:00] VITALS: BP 140/74
[2022-06-11 20:00] VITALS: BP 139/68
[2022-06-11] MEDS: ATORVASTATIN CALCIUM 40MG TABLET PO SCH (21:47)
[2022-06-11] MEDS: INSULIN GLARGINE 100 UNITS/ML SUBCUT SCH (21:49)
[2022-06-12] VITALS: BP 135/76
[2022-06-12 04:00] VITALS: BP 133/74
[2022-06-12] MEDS: SODIUM CHLORIDE 0.9% 1,000 ML IV SCH ×2 (05:00→17:51)
[2022-06-12] MEDS: CARBIDOPA/LEVODOPA 10/100MG TABLET PO SCH ×3 (06:14→21:58)
[2022-06-12 08:00] VITALS: BP 128/69
[2022-06-12] MEDS: AMLODIPINE 10MG TABLET PO SCH (10:14)
[2022-06-12] MEDS: PROPRANOLOL HCL 10MG TABLET PO SCH ×2 (10:14→21:57)
[2022-06-12] MEDS: FOLIC ACID 1MG TABLET PO SCH (10:15)
[2022-06-12] MEDS: METFORMIN HCL 500MG TABLET PO SCH ×2 (10:15→17:51)
[2022-06-12] MEDS: MULTIVITAMINS,THER W-MINERALS TABLET PO SCH (10:15)
[2022-06-12] MEDS: THIAMINE HCL 100MG TABLET PO SCH (10:17)
[2022-06-12 12:00] VITALS: BP 147/74
[2022-06-12 15:56] VITALS: BP 142/74
[2022-06-12 20:00] VITALS: BP 119/63
[2022-06-12] MEDS: ATORVASTATIN CALCIUM 40MG TABLET PO SCH (21:57)
[2022-06-12] MEDS: INSULIN GLARGINE 100 UNITS/ML SUBCUT SCH (22:00)
[2022-06-13] VITALS: BP 153/76
[2022-06-13 04:00] VITALS: BP 144/83
[2022-06-13] MEDS: CARBIDOPA/LEVODOPA 10/100MG TABLET PO SCH ×3 (05:47→22:28)
[2022-06-13] MEDS: SODIUM CHLORIDE 0.9% 1,000 ML IV SCH ×3 (05:49→23:05)
[2022-06-13 07:45] VITALS: BP 136/79
[2022-06-13] MEDS: PROPRANOLOL HCL 10MG TABLET PO SCH ×2 (08:26→22:28)
[2022-06-13] MEDS: METFORMIN HCL 500MG TABLET PO SCH ×2 (08:27→17:50)
[2022-06-13] MEDS: AMLODIPINE 10MG TABLET PO SCH (08:27)
[2022-06-13] MEDS: THIAMINE HCL 100MG TABLET PO SCH (08:27)
[2022-06-13] MEDS: FOLIC ACID 1MG TABLET PO SCH (08:27)
[2022-06-13] MEDS: MULTIVITAMINS,THER W-MINERALS TABLET PO SCH (08:27)
[2022-06-13 12:00] VITALS: BP 120/61
[2022-06-13 15:46] VITALS: BP 123/65
[2022-06-13 20:00] VITALS: BP 147/78
[2022-06-13] MEDS: ATORVASTATIN CALCIUM 40MG TABLET PO SCH (22:32)
[2022-06-13] MEDS: INSULIN GLARGINE 100 UNITS/ML SUBCUT SCH (23:03)
[2022-06-14] VITALS: BP 117/60
[2022-06-14 04:00] VITALS: BP 147/79
[2022-06-14] MEDS: CARBIDOPA/LEVODOPA 10/100MG TABLET PO SCH ×3 (06:46→21:49)
[2022-06-14 08:00] VITALS: BP 132/75
[2022-06-14 08:51] LABS: VITAMIN B12 SERUM 553 pg/mL (211-911)
[2022-06-14] MEDS: FOLIC ACID 1MG TABLET PO SCH (09:00)
[2022-06-14] MEDS: PROPRANOLOL HCL 10MG TABLET PO SCH ×2 (09:00→21:48)
[2022-06-14] MEDS: AMLODIPINE 10MG TABLET PO SCH (10:00)
[2022-06-14] MEDS: METFORMIN HCL 500MG TABLET PO SCH ×2 (10:00→17:50)
[2022-06-14] MEDS: MULTIVITAMINS,THER W-MINERALS TABLET PO SCH (10:01)
[2022-06-14] MEDS: THIAMINE HCL 100MG TABLET PO SCH (10:14)
[2022-06-14 11:03] LABS: CHLORIDE 108 mEq/L (98-107)
[2022-06-14 12:00] VITALS: BP 151/81
[2022-06-14] MEDS: SODIUM CHLORIDE 0.9% 1,000 ML IV SCH (13:00)
[2022-06-14 16:00] VITALS: BP 125/67
[2022-06-14 20:00] VITALS: BP 146/78
[2022-06-14] MEDS: ATORVASTATIN CALCIUM 40MG TABLET PO SCH (21:48)
[2022-06-14] MEDS: INSULIN GLARGINE 100 UNITS/ML SUBCUT SCH (21:50)
[2022-06-15] VITALS: BP 130/71
[2022-06-15] MEDS: SODIUM CHLORIDE 0.9% 1,000 ML IV SCH ×2 (02:20→11:58)
[2022-06-15 04:00] VITALS: BP 116/68
[2022-06-15] MEDS: CARBIDOPA/LEVODOPA 10/100MG TABLET PO SCH ×3 (06:27→21:38)
[2022-06-15 08:00] VITALS: BP 129/73
[2022-06-15] MEDS: METFORMIN HCL 500MG TABLET PO SCH ×2 (08:03→18:10)
[2022-06-15] MEDS: PROPRANOLOL HCL 10MG TABLET PO SCH ×2 (09:00→21:37)
[2022-06-15] MEDS: MULTIVITAMINS,THER W-MINERALS TABLET PO SCH (09:27)
[2022-06-15] MEDS: THIAMINE HCL 100MG TABLET PO SCH (09:27)
[2022-06-15] MEDS: FOLIC ACID 1MG TABLET PO SCH (09:27)
[2022-06-15] MEDS: AMLODIPINE 10MG TABLET PO SCH (09:28)
[2022-06-15 20:00] VITALS: BP 143/74
[2022-06-15] MEDS: ATORVASTATIN CALCIUM 40MG TABLET PO SCH (21:38)
[2022-06-15] MEDS: INSULIN GLARGINE 100 UNITS/ML SUBCUT SCH (22:00)
[2022-06-16] VITALS: BP 128/78
[2022-06-16 04:00] VITALS: BP 161/86
[2022-06-16] MEDS: SODIUM CHLORIDE 0.9% 1,000 ML IV SCH ×2 (05:00→17:36)
[2022-06-16] MEDS: CARBIDOPA/LEVODOPA 10/100MG TABLET PO SCH ×3 (06:00→21:59)
[2022-06-16 08:00] VITALS: BP 154/89
[2022-06-16] MEDS: MULTIVITAMINS,THER W-MINERALS TABLET PO SCH (08:12)
[2022-06-16] MEDS: FOLIC ACID 1MG TABLET PO SCH (08:13)
[2022-06-16] MEDS: METFORMIN HCL 500MG TABLET PO SCH ×2 (08:13→17:36)
[2022-06-16] MEDS: THIAMINE HCL 100MG TABLET PO SCH (08:16)
[2022-06-16] MEDS: AMLODIPINE 10MG TABLET PO SCH (08:16)
[2022-06-16] MEDS: PROPRANOLOL HCL 10MG TABLET PO SCH ×2 (08:19→21:00)
[2022-06-16 12:00] VITALS: BP 123/73
[2022-06-16 15:58] VITALS: BP 153/80
[2022-06-16 20:00] VITALS: BP 147/77
[2022-06-16] MEDS: ATORVASTATIN CALCIUM 40MG TABLET PO SCH (21:00)
[2022-06-16] MEDS: INSULIN GLARGINE 100 UNITS/ML SUBCUT SCH (22:05)
[2022-06-17] VITALS: BP 146/75
[2022-06-17 04:00] VITALS: BP 158/95
[2022-06-17] MEDS: SODIUM CHLORIDE 0.9% 1,000 ML IV SCH ×2 (05:33→21:28)
[2022-06-17] MEDS: CARBIDOPA/LEVODOPA 10/100MG TABLET PO SCH ×3 (05:34→21:26)
[2022-06-17 08:00] VITALS: BP 160/86
[2022-06-17] MEDS: METFORMIN HCL 500MG TABLET PO SCH ×2 (08:23→17:22)
[2022-06-17] MEDS: MULTIVITAMINS,THER W-MINERALS TABLET PO SCH (08:23)
[2022-06-17] MEDS: FOLIC ACID 1MG TABLET PO SCH (08:23)
[2022-06-17] MEDS: AMLODIPINE 10MG TABLET PO SCH (08:24)
[2022-06-17] MEDS: THIAMINE HCL 100MG TABLET PO SCH (08:24)
[2022-06-17] MEDS: PROPRANOLOL HCL 10MG TABLET PO SCH ×2 (08:25→21:27)
[2022-06-17 12:00] VITALS: BP 148/79
[2022-06-17 16:00] VITALS: BP 149/76
[2022-06-17 20:00] VITALS: BP 144/72
[2022-06-17] MEDS: ATORVASTATIN CALCIUM 40MG TABLET PO SCH (21:26)
[2022-06-17] MEDS: INSULIN GLARGINE 100 UNITS/ML SUBCUT SCH (21:42)
[2022-06-18] VITALS: BP 151/71
[2022-06-18 04:00] VITALS: BP 150/69
[2022-06-18 04:07] LABS: 25-HYDROXY VITAMIN D3 15 ng/mL (.)
[2022-06-18] MEDS: CARBIDOPA/LEVODOPA 10/100MG TABLET PO SCH ×3 (05:47→22:24)
[2022-06-18 08:00] VITALS: BP 152/83
[2022-06-18] MEDS: METFORMIN HCL 500MG TABLET PO SCH ×2 (08:52→17:11)
[2022-06-18] MEDS: MULTIVITAMINS,THER W-MINERALS TABLET PO SCH (08:53)
[2022-06-18] MEDS: THIAMINE HCL 100MG TABLET PO SCH (08:53)
[2022-06-18] MEDS: AMLODIPINE 10MG TABLET PO SCH (08:53)
[2022-06-18] MEDS: FOLIC ACID 1MG TABLET PO SCH (08:53)
[2022-06-18] MEDS: PROPRANOLOL HCL 10MG TABLET PO SCH ×2 (09:45→22:23)
[2022-06-18] MEDS: SODIUM CHLORIDE 0.9% 1,000 ML IV SCH ×2 (09:48→23:40)
[2022-06-18 12:00] VITALS: BP 144/78
[2022-06-18] MEDS ORDERED: ERGOCALCIFEROL 50000UNITS CAPSULE PO SCH (14:30)
[2022-06-18 15:27] LABS: BASOPHILS % 0.5 % (0.0-2.0); EOSINOPHILS % 9.4 % (0.0-5.0); HEMATOCRIT. 32.4 % (42.0-52.0); HEMOGLOBIN. 10.7 g/dL (14.0-18.0); LYMPHOCYTES % 19.7 % (20.0-50.0); MEAN CORPUSCULAR HEMOGLOBIN 30.1 pg (28.0-32.0); MEAN CORPUSCULAR VOLUME 90.7 fL (80.0-94.0); MEAN PLATELET VOLUME 10.6 fl (7.4-10.4); MONOCYTES % 9.3 % (2.0-8.0); NEUTROPHILS % 61.1 % (40.0-76.0); PLATELET 230 x1000/uL (130-400); RED BLOOD CELL COUNT 3.57 mill/uL (4.7-6.1); RED CELL DISTRIBUTION WIDTH 14.3 % (11.6-14.6)
[2022-06-18 15:36] LABS: CHLORIDE 106 mEq/L (98-107)
[2022-06-18 16:11] VITALS: BP 134/74
[2022-06-18 20:00] VITALS: BP 135/76
[2022-06-18] MEDS: ATORVASTATIN CALCIUM 40MG TABLET PO SCH (22:24)
[2022-06-18] MEDS: INSULIN GLARGINE 100 UNITS/ML SUBCUT SCH (22:31)
[2022-06-19] VITALS: BP 144/75
[2022-06-19 04:00] VITALS: BP 161/83
[2022-06-19] MEDS: CARBIDOPA/LEVODOPA 10/100MG TABLET PO SCH ×3 (06:31→21:35)
[2022-06-19 08:00] VITALS: BP 129/66
[2022-06-19] MEDS: PROPRANOLOL HCL 10MG TABLET PO SCH ×2 (08:12→21:00)
[2022-06-19] MEDS: DOCUSATE SODIUM 100MG CAPSULE PO PRN (08:12)
[2022-06-19] MEDS: THIAMINE HCL 100MG TABLET PO SCH (08:12)
[2022-06-19] MEDS: FOLIC ACID 1MG TABLET PO SCH (08:13)
[2022-06-19] MEDS: MULTIVITAMINS,THER W-MINERALS TABLET PO SCH (08:13)
[2022-06-19] MEDS: AMLODIPINE 10MG TABLET PO SCH (08:13)
[2022-06-19] MEDS: METFORMIN HCL 500MG TABLET PO SCH ×2 (08:13→17:50)
[2022-06-19 12:00] VITALS: BP 123/73
[2022-06-19] MEDS: SODIUM CHLORIDE 0.9% 1,000 ML IV SCH (13:30)
[2022-06-19 16:00] VITALS: BP 141/77
[2022-06-19 20:00] VITALS: BP 111/73
[2022-06-19] MEDS: ATORVASTATIN CALCIUM 40MG TABLET PO SCH (21:35)
[2022-06-19] MEDS: INSULIN GLARGINE 100 UNITS/ML SUBCUT SCH (21:36)
[2022-06-19] MEDS: ACETAMINOPHEN 325MG TABLET PO PRN (21:36)
[2022-06-20] VITALS: BP 139/64
[2022-06-20] MEDS: SODIUM CHLORIDE 0.9% 1,000 ML IV SCH ×2 (02:00→15:40)
[2022-06-20 04:00] VITALS: BP 156/83
[2022-06-20] MEDS: CARBIDOPA/LEVODOPA 10/100MG TABLET PO SCH ×3 (05:47→21:27)
[2022-06-20 08:00] VITALS: BP 157/78
[2022-06-20] MEDS: FOLIC ACID 1MG TABLET PO SCH (08:29)
[2022-06-20] MEDS: METFORMIN HCL 500MG TABLET PO SCH ×2 (08:29→18:18)
[2022-06-20] MEDS: THIAMINE HCL 100MG TABLET PO SCH (08:29)
[2022-06-20] MEDS: MULTIVITAMINS,THER W-MINERALS TABLET PO SCH (08:30)
[2022-06-20] MEDS: PROPRANOLOL HCL 10MG TABLET PO SCH ×2 (08:31→21:28)
[2022-06-20] MEDS: AMLODIPINE 10MG TABLET PO SCH (08:32)
[2022-06-20 11:51] VITALS: BP 138/73
[2022-06-20 15:44] VITALS: BP 126/67
[2022-06-20 20:00] VITALS: BP 145/79
[2022-06-20] MEDS: ATORVASTATIN CALCIUM 40MG TABLET PO SCH (21:27)
[2022-06-20] MEDS: INSULIN GLARGINE 100 UNITS/ML SUBCUT SCH (21:29)
[2022-06-21] VITALS: BP 140/72
[2022-06-21 04:00] VITALS: BP 138/76
[2022-06-21] MEDS: SODIUM CHLORIDE 0.9% 1,000 ML IV SCH ×2 (05:00→18:12)
[2022-06-21] MEDS: CARBIDOPA/LEVODOPA 10/100MG TABLET PO SCH ×3 (06:26→20:36)
[2022-06-21 08:00] VITALS: BP 137/72
[2022-06-21] MEDS: MULTIVITAMINS,THER W-MINERALS TABLET PO SCH (09:35)
[2022-06-21] MEDS: METFORMIN HCL 500MG TABLET PO SCH ×2 (09:35→18:09)
[2022-06-21] MEDS: ACETAMINOPHEN 325MG TABLET PO PRN (09:36)
[2022-06-21] MEDS: THIAMINE HCL 100MG TABLET PO SCH (09:36)
[2022-06-21] MEDS: FOLIC ACID 1MG TABLET PO SCH (09:36)
[2022-06-21] MEDS: DOCUSATE SODIUM 100MG CAPSULE PO PRN (09:36)
[2022-06-21] MEDS: AMLODIPINE 10MG TABLET PO SCH (09:36)
[2022-06-21] MEDS: PROPRANOLOL HCL 10MG TABLET PO SCH ×2 (09:37→20:36)
[2022-06-21 12:00] VITALS: BP 145/83
[2022-06-21 16:00] VITALS: BP 123/59
[2022-06-21] MEDS ORDERED: LOPERAMIDE HCL 2MG CAPSULE PO PRN (17:15)
[2022-06-21 20:00] VITALS: BP 149/74
[2022-06-21] MEDS: ATORVASTATIN CALCIUM 40MG TABLET PO SCH (20:36)
[2022-06-21] MEDS: INSULIN GLARGINE 100 UNITS/ML SUBCUT SCH (22:44)
[2022-06-22] VITALS (7 sets, daily range): BP systolic 128–165; BP diastolic 60–82
[2022-06-22] MEDS ORDERED: HALOPERIDOL LACTATE 5MG/ML VIAL IM NR (05:00)
[2022-06-22] MEDS: CARBIDOPA/LEVODOPA 10/100MG TABLET PO SCH ×3 (06:07→22:37)
[2022-06-22] MEDS: METFORMIN HCL 500MG TABLET PO SCH ×2 (06:24→18:42)
[2022-06-22] MEDS: SODIUM CHLORIDE 0.9% 1,000 ML IV SCH (06:25)
[2022-06-22] MEDS: MULTIVITAMINS,THER W-MINERALS TABLET PO SCH (09:14)
[2022-06-22] MEDS: ACETAMINOPHEN 325MG TABLET PO PRN (09:14)
[2022-06-22] MEDS: PROPRANOLOL HCL 10MG TABLET PO SCH ×2 (09:15→22:38)
[2022-06-22] MEDS: AMLODIPINE 10MG TABLET PO SCH (09:15)
[2022-06-22] MEDS: FOLIC ACID 1MG TABLET PO SCH (09:15)
[2022-06-22] MEDS: THIAMINE HCL 100MG TABLET PO SCH (09:15)
[2022-06-22] MEDS: DOCUSATE SODIUM 100MG CAPSULE PO PRN ×2 (09:16→18:42)
[2022-06-22] MEDS: INSULIN GLARGINE 100 UNITS/ML SUBCUT SCH (22:00)
[2022-06-22] MEDS: ATORVASTATIN CALCIUM 40MG TABLET PO SCH (22:38)
== END 2022-06-22 23:12 | DRG 56 ==
LOC: ER 23:17 → MICUSO 05-30 04:58 → EDBEDREQ 05-30 05:00 → EDBEDREQTM 05-30 05:01 → 8WST 05-30 21:00 → 6EST 06-05 20:16
PROVIDERS: ADMIT Hospitalist; ATTEND Hospitalist
DX: G20 Parkinson's disease (principal); E43 Unspecified severe protein-calorie malnutrition; G25.0 Essential tremor; R29.6 Repeated falls; M48.02 Spinal stenosis, cervical region; M48.061 Spinal stenosis, lumbar region without neurogenic claudication; D63.8 Anemia in other chronic diseases classified elsewhere; Z20.822 Contact with and (suspected) exposure to COVID-19; R74.01 Elevation of levels of liver transaminase levels; E11.42 Type 2 diabetes mellitus with diabetic polyneuropathy; R26.9 Unspecified abnormalities of gait and mobility; R53.81 Other malaise; E55.9 Vitamin D deficiency, unspecified; Z96.652 Presence of left artificial knee joint; Z68.26 Body mass index [BMI] 26.0-26.9, adult; Z82.49 Family history of ischemic heart disease and other diseases of the circulatory system; Z79.899 Other long term (current) drug therapy
CPT/HCPCS: 36415; 70551; 71045; 72141; 72146; 72148; 80048; 80053; 80061; 80320; 82140; 82306; 82607; 82746; 82962; 83605; 83880; 84443; 84484; 85025; 86850; 86900; 87426; 93005; 93970; 97110; 97116; 97162; 97166; 97530; 97535; 99285; A6261; C1893; J1630; J1815; J3411; J3475; J3490; J7030; J7070; A4315; G0480

== ENCOUNTER 2023-08-13 18:22 | Inpatient (IN) | payer MEDICARE, MEDICAID ==
[~2023-08-13] VITALS: Ht 177.8 cm; Wt 83.6 kg
[~2023-08-13 18:22] MED LIST changes: +LEVO-65 MT; +METF-414 PO
[2023-08-13 18:25] VITALS: O2SAT 98
[2023-08-13 19:07] LABS: BASOPHILS % 0.5 % (0.0-2.0); EOSINOPHILS % 8.5 % (0.0-5.0); HEMATOCRIT. 32.1 % (42.0-52.0); HEMOGLOBIN. 10.3 g/dL (14.0-18.0); LYMPHOCYTES % 26.3 % (20.0-50.0); MEAN CORPUSCULAR HEMOGLOBIN 30.3 pg (28.0-32.0); MEAN CORPUSCULAR HGB CONC 32.2 g/dL (31.0-37.0); MEAN PLATELET VOLUME 9.6 fl (7.4-10.4); MONOCYTES % 11.4 % (2.0-8.0); NEUTROPHILS % 53.3 % (40.0-76.0); PLATELET 171 x1000/uL (130-400); RED BLOOD CELL COUNT 3.41 mill/uL (4.7-6.1); RED CELL DISTRIBUTION WIDTH 14.2 % (11.6-14.6); WHITE BLOOD COUNT 5.9 x1000/uL (4.5-11.0)
[2023-08-13 19:26] LABS: ALANINE AMINOTRANSFERASE < 7 IU/L (10-49); ALBUMIN 3.8 g/dL (3.2-4.8); ASPARTATE AMINOTRANSFERASE 12 IU/L (<34); BILIRUBIN TOTAL 0.6 mg/dL (0.1-1.0); CALCIUM 9.1 mg/dL (8.7-10.4); CARBON DIOXIDE 25 mEq/L (21-32); CHLORIDE 106 mEq/L (98-107); CREATININE 1.1 mg/dL (0.6-1.3); ETHANOL BLOOD < 10 mg/dL (<10); GLUCOSE 94 mg/dL (70-105); PROTEIN TOTAL 6.4 g/dL (6.0-8.3); SODIUM 137 mEq/L (136-145); TROPONIN I HIGH SENSITIVITY 8 ng/L (3.0-53); UREA NITROGEN BLOOD 21 mg/dL (9-23)
[2023-08-13] MEDS: ASPIRIN 325MG TABLET PO ONE (19:37)
[2023-08-13 21:08] LABS: TROPONIN I HIGH SENSITIVITY 8 ng/L (3.0-53)
[2023-08-13] MEDS: IOHEXOL-350 100 ML BOTTLE ONE (23:21)
[2023-08-14] MEDS: DEXTROSE 50% WATER 50ML SYRINGE IV SCH (08:00)
[2023-08-14 08:35] LABS: CLARITY URINE CLEAR (CLEAR); COLOR URINE YELLOW (YELLOW); GLUCOSE URINE 2+ (NEGATIVE); KETONES URINE NEGATIVE (NEGATIVE); LEUKOCYTE ESTERASE URINE NEGATIVE (NEGATIVE); NITRITE URINE NEGATIVE (NEGATIVE); OCCULT BLOOD URINE NEGATIVE (NEGATIVE); PH URINE 7.5 (4.5-8.0); PROTEIN URINE NEGATIVE (NEGATIVE); SPECIFIC GRAVITY URINE 1.013 (1.005-1.030); UROBILINOGEN URINE 0.2 E.U./dL (0.2-1.0)
[2023-08-14 09:03] LABS: *AMPHETAMINES SCREEN URINE NEGATIVE (NEGATIVE); *BARBITURATES SCREEN URINE NEGATIVE (NEGATIVE); *BENZODIAZEPINES SCREEN URINE NEGATIVE (NEGATIVE); *COCAINE SCREEN URINE NEGATIVE (NEGATIVE); CANNABINOID URINE SCREEN NEGATIVE (NEGATIVE); ECSTASY MDMA SCREEN URINE NEGATIVE (NEGATIVE); METHADONE URINE SCREEN Neg (NEGATIVE); OPIATES URINE SCREEN NEGATIVE (NEGATIVE); PHENCYCLIDINE URINE SCREEN NEGATIVE (NEGATIVE)
[2023-08-14 09:04] LABS: SQUAMOUS EPITHELIAL CELL URINE RARE /lpf (RARE/1+)
[2023-08-14 09:06] LABS: BACTERIA URINE TRACE; RBC URINE 0-2 /hpf (0-2); WBC URINE 0-2 /hpf (0-2)
[2023-08-14] MEDS ORDERED: ACETAMINOPHEN 325MG TABLET PO PRN (10:00)
[2023-08-14] MEDS ORDERED: ONDANSETRON HCL 4MG/2ML INJ IV PRN (10:00)
[2023-08-14 10:04] VITALS: BP 141/83; PULSE 65; RESP 18; TEMP 98.1
[2023-08-14] MEDS: ASPIRIN 81MG TABLET PO SCH (11:00)
[2023-08-14] MEDS: AMLODIPINE 10MG TABLET PO SCH (11:00)
[2023-08-14] MEDS: ENOXAPARIN 40MG/0.4ML SYR SUBCUT SCH (11:01)
[2023-08-14 12:44] VITALS: BP 115/62; PULSE 63; RESP 18; TEMP 99.7
[2023-08-14 16:00] VITALS: BP 149/83; PULSE 62; RESP 20; TEMP 97.7
[2023-08-14 20:00] VITALS: BP 153/86; PULSE 65; RESP 19; TEMP 97.3
[2023-08-14] MEDS: ATORVASTATIN CALCIUM 40MG TABLET PO SCH (21:00)
[2023-08-15] VITALS: BP 146/70; PULSE 69; RESP 18; TEMP 98.4
[2023-08-15 04:00] VITALS: BP 156/79; PULSE 72; RESP 19; TEMP 97.9
[2023-08-15 08:00] VITALS: BP 162/86; PULSE 70; RESP 20; TEMP 97.6
[2023-08-15] MEDS ORDERED: IOHEXOL-350 100 ML BOTTLE ONE (09:52)
[2023-08-15 10:45] LABS: T4 FREE 1.3 ng/dL (0.89-1.76); THYROID STIMULATING HORMONE 0.59 uIU/mL (0.55-4.78)
[2023-08-15 11:04] LABS: FOLIC ACID (FOLATE) SERUM > 20.00 ng/mL (>5.38); VITAMIN B12 SERUM 346 pg/mL (211-911)
[2023-08-15 12:00] VITALS: BP 135/76; PULSE 70; RESP 18; TEMP 96.9
[2023-08-15 16:00] VITALS: BP 131/74; PULSE 61; RESP 20; TEMP 97.6
[2023-08-15 20:00] VITALS: BP 145/75; PULSE 85; RESP 19; TEMP 98.6
[2023-08-15] MEDS: HALOPERIDOL LACTATE 5MG/ML VIAL IM NR (22:24)
[2023-08-16] VITALS: BP 120/73; PULSE 66; RESP 19; TEMP 98.5
[2023-08-16 04:00] VITALS: BP 128/77; PULSE 64; RESP 19; TEMP 98.3
[2023-08-16 08:00] VITALS: BP 120/76; PULSE 69; RESP 18; TEMP 98.1
[2023-08-16 12:00] VITALS: BP 108/61; PULSE 65; RESP 18; TEMP 98.1
[2023-08-16 16:00] VITALS: BP 90/50; PULSE 66; RESP 18; TEMP 98.1
[2023-08-16 20:00] VITALS: BP 107/56; PULSE 72; RESP 19; TEMP 97.9
[2023-08-17] VITALS: BP 127/70; PULSE 74; RESP 18; TEMP 97.5
[2023-08-17 04:00] VITALS: BP 130/74; PULSE 84; RESP 18; TEMP 97.7
[2023-08-17 08:00] VITALS: BP 136/72; PULSE 89; RESP 18; TEMP 98.2
[2023-08-17 12:00] VITALS: BP 140/71; PULSE 80; RESP 18; TEMP 97.9
[2023-08-17 16:00] VITALS: BP 114/67; PULSE 80; RESP 18; TEMP 97.9
[2023-08-17 20:00] VITALS: BP 153/70; PULSE 79; RESP 18; TEMP 97.6
[2023-08-18] VITALS: BP 136/76; PULSE 76; RESP 18; TEMP 97.6
[2023-08-18 04:00] VITALS: BP 146/72; PULSE 74; RESP 18; TEMP 97.4
[2023-08-18 08:00] VITALS: BP 173/89; PULSE 97; RESP 18; TEMP 99.3
[2023-08-18] MEDS: CYANOCOBALAMIN 1000MCG TABLET PO SCH (08:52)
[2023-08-18 12:00] VITALS: BP 115/71; PULSE 75; RESP 18; TEMP 98
[2023-08-18 16:00] VITALS: BP 129/82; PULSE 67; RESP 17; TEMP 97.1
[2023-08-18 20:00] VITALS: BP 126/84; PULSE 66; RESP 17; TEMP 97.6
[2023-08-19] VITALS: BP 123/82; PULSE 64; RESP 17; TEMP 97.4
[2023-08-19 06:00] VITALS: BP 124/88; PULSE 66; RESP 18; TEMP 97.4
[2023-08-19 08:00] VITALS: BP 121/82; PULSE 71; RESP 20; TEMP 97.4
[2023-08-19 12:00] VITALS: BP 125/79; PULSE 68; RESP 20; TEMP 97.5
[2023-08-19 16:00] VITALS: BP 113/68; PULSE 71; RESP 20; TEMP 97
[2023-08-19 20:00] VITALS: BP 129/72; PULSE 73; RESP 17; TEMP 97.7
[2023-08-20] VITALS: BP 135/75; PULSE 79; RESP 18; TEMP 99
[2023-08-20 04:00] VITALS: BP 160/88; PULSE 85; RESP 20; TEMP 97.5
[2023-08-20 12:00] VITALS: BP 153/87; PULSE 81; RESP 19; TEMP 97.6
[2023-08-20 16:00] VITALS: BP 148/72; PULSE 74; RESP 18; TEMP 97.1
== END 2023-08-20 19:05 | disposition home or self-care (01) | DRG 69 ==
LOC: ER 18:22 → 7EST 22:35 → EDBEDREQ 22:37 → EDBEDREQTM 22:37 → 7EST 08-19 06:40 → 6EST 08-20 02:10
PROVIDERS: ADMIT Internal Medicine; ATTEND Internal Medicine
PROC: 4A10X4Z Monitoring of Central Nervous Electrical Activity, External Approach (ICD-10-PCS; principal; 2023-08-15)
DX: G45.9 Transient cerebral ischemic attack, unspecified (principal); G93.40 Encephalopathy, unspecified; E11.9 Type 2 diabetes mellitus without complications; D64.9 Anemia, unspecified; I10 Essential (primary) hypertension; F10.20 Alcohol dependence, uncomplicated; R90.82 White matter disease, unspecified
CPT/HCPCS: 36415; 70496; 70498; 70551; 71045; 80053; 80061; 80305; 80320; 81003; 82607; 82746; 82962; 83036; 84439; 84443; 84481; 84484; 85025; 93005; 93306; 97116; 97162; 97166; 97530; 99285; J1630; J1650; Q9967; G0480

== ENCOUNTER 2025-04-21 01:18 | Emergency (ER) | payer MEDICARE, MEDICAID ==
[~2025-04-21] VITALS: Ht 177.8 cm; Wt 64.0 kg
[~2025-04-21 01:18] MED LIST changes: +ASPI-1406 MT
[2025-04-21 01:22] VITALS: O2SAT 99
[2025-04-21 03:12] LABS: BASOPHILS % 0.5 % (0.0-2.0); EOSINOPHILS % 4.0 % (0.0-5.0); HEMATOCRIT. 40.6 % (42.0-52.0); HEMOGLOBIN. 13.0 g/dL (14.0-18.0); LYMPHOCYTES % 18.4 % (20.0-50.0); MEAN PLATELET VOLUME 11.1 fl (7.4-10.4); MONOCYTES % 8.6 % (2.0-8.0); NEUTROPHILS % 68.5 % (40.0-76.0); PLATELET 150 x1000/uL (130-400); RED BLOOD CELL COUNT 4.26 mill/uL (4.7-6.1); RED CELL DISTRIBUTION WIDTH 14.6 % (11.6-14.6)
[2025-04-21] MEDS ORDERED: TOPUD MT (03:30)
[2025-04-21 03:33] LABS: CREATININE 1.0 mg/dL (0.6-1.3); UREA NITROGEN BLOOD 19 mg/dL (9-23)
[2025-04-21 03:35] LABS: ASPARTATE AMINOTRANSFERASE 16 IU/L (<34); BILIRUBIN DIRECT 0.2 mg/dL (<=3.0); BILIRUBIN TOTAL 0.5 mg/dL (0.1-1.0); PROTEIN TOTAL 7.1 g/dL (6.0-8.3)
[2025-04-21 03:39] VITALS: TEMP 37.2
[2025-04-21] MEDS: TRANEXAMIC ACID 1,000MG/10ML TP ONE (04:37)
[2025-04-21 05:43] VITALS: BP 148/79; PULSE 55; RESP 16; O2SAT 99
== END 2025-04-21 05:42 ==
LOC: ER 01:32
DX: S01.511A Laceration without foreign body of lip, initial encounter (principal); I10 Essential (primary) hypertension; G20.A1 Parkinson's disease without dyskinesia, without mention of fluctuations; Z79.899 Other long term (current) drug therapy; W06.XXXA Fall from bed, initial encounter; Y93.89 Activity, other specified; Y92.89 Other specified places as the place of occurrence of the external cause; Y99.8 Other external cause status
CPT/HCPCS: 12011; 36415; 80048; 80076; 85025; 99284